=== PATIENT | female | born 1965 | race Two or more races ===

== ENCOUNTER 2017-10-29 21:26 | Emergency (ER) | payer OTHER ==
[~2017-10-29] VITALS: Ht 167.6 cm; Wt 94.0 kg
[2017-10-29 21:35] VITALS: BP 145/70
[2017-10-29] MEDS ORDERED: ONDANSETRON ODT 4 MG PO ONE (22:00)
[2017-10-29] MEDS ORDERED: MORPHINE SULFATE 4 MG/ML, 1ML IVPush ONE (22:00)
[2017-10-29] MEDS ORDERED: MORPHINE SULFATE 4 MG/ML, 1ML ONE (22:23)
[2017-10-29] MEDS ORDERED: ONDANSETRON ODT 4 MG ONE (22:23)
[2017-10-29] MEDS ORDERED: PLEASE ENTER ALLERGIES MC SCH (22:30)
== END 2017-10-29 23:40 | disposition home or self-care (01) ==
LOC: ED 23:34
DX: S62.002A Unspecified fracture of navicular [scaphoid] bone of left wrist, initial encounter for closed fracture (principal); W01.0XXA Fall on same level from slipping, tripping and stumbling without subsequent striking against object, initial encounter; Y93.89 Activity, other specified; Y99.8 Other external cause status; Y92.69 Other specified industrial and construction area as the place of occurrence of the external cause
CPT/HCPCS: 29125; 73110; 96374; 99284; Q0162

== ENCOUNTER 2019-06-24 16:41 | Emergency (ER) | payer BC, OTHER ==
[~2019-06-24] VITALS: Ht 170.2 cm; Wt 89.8 kg
--- NOTE | 2019-06-24 19:45 | NUR ---
THIS IS A 54 YO FEMALE COMING IN FOR "CHEST PRESSURE AND GOING UP TO MY FOREHEAD AND NASAL AREA", AND C/O LEFT LEG PAIN. PATIENT STATES THE PRESSURE IS INTERMITTENT, DENIES RADIATION, NO PAIN AT THIS TIME. DENIES SOB. LEFT LOWER LEG MID-S[place]AR HAS AREA OF WARMTH, TENDER TO PALPATION, AND REDNESS. PATIENT A&OX4, VSS, NAD, CALL LIGHT IN REACH. ALL MONITORING IN PLACE, NORMAL SINUS RHYTHM ON MONITOR. DENIES NEEDS AT THIS TIME
--- NOTE | 2019-06-24 20:13 | NUR ---
PATIENT TO ULTRASOUND
[2019-06-24 20:21] LABS: BASOPHILS # (AUTO) 0.03 x10^3/uL (0-0.1); BASOPHILS % (AUTO) 1 % (0-1); EOSINOPHILS # (AUTO) 0.33 x10^3/uL (0-0.4); EOSINOPHILS % (AUTO) 5 % (1-7); LYMPHOCYTES % (AUTO) 35 % (22-44); MD NO; MEAN CORPUSCULAR HEMOGLOBIN 30.2 pg (27.0-34.8); MEAN CORPUSCULAR HGB CONC 33.3 g/dL (32.4-35.8); MEAN CORPUSCULAR VOLUME 90.9 fL (80-100); MEAN PLATELET VOLUME 7.2 fL (7.4-10.4); MONOCYTES # (AUTO) 0.47 x10^3/uL (0.2-0.8); MONOCYTES % (AUTO) 7 % (2-9); NEUTROPHILS # (AUTO) 3.25 x10^3/uL (1.8-6.8); NEUTROPHILS % (AUTO) 52 % (42-75); PLATELET COUNT 278 x10^3/uL (130-400); RED BLOOD COUNT 4.46 x10^6/uL (3.82-5.3); RED CELL DISTRIBUTION WIDTH 14.2 % (9.6-15.2)
[2019-06-24 20:23] LABS: CHLORIDE 109 mmol/L (98-107)
[2019-06-24 20:30] LABS: ALBUMIN 3.8 g/dL (3.4-5.0); ANION GAP 6 mmol/L (5-15); CALCIUM 8.8 mg/dL (8.5-10.1); CREATININE 0.72 mg/dL (0.55-1.02)
[2019-06-24 20:45] LABS: TROPONIN I < 0.015 ng/mL (0.000-0.045)
--- NOTE | 2019-06-24 21:03 | NUR ---
CTA PENDING IV.
--- NOTE | 2019-06-24 21:28 | NUR ---
PATIENT TO CT
[2019-06-24] MEDS ORDERED: OMNIPAQUE 350 MG/ML, 100ML BOTTLE ONE (22:07)
[2019-06-24 22:08] VITALS: BP 139/50
--- NOTE | 2019-06-24 22:14 | NUR ---
Patient/Caregiver given discharge instructions and they have confirmed that they understand the instructions. Patient ambulatory with steady gait.
== END 2019-06-24 22:24 | disposition home or self-care (01) ==
LOC: ED 19:30
DX: R42 Dizziness and giddiness (principal); R07.89 Other chest pain; I80.02 Phlebitis and thrombophlebitis of superficial vessels of left lower extremity; R05 Cough
CPT/HCPCS: 36415; 71045; 71275; 80048; 82040; 84484; 85025; 85379; 93005; 93971; 99285; Q9967